=== PATIENT | male | born 1975 | race African-American/Black ===

== ENCOUNTER 2020-10-05 06:24 | Observation (INO) ==
[2020-10-05 07:14] LABS: Basophils % 0.4 % (0.0-0.8); Eosinophils # 0.3 10*3/uL (0.0-0.87); Eosinophils % 3.6 % (0.00-10.9); Hematocrit 39.7 VOL% (42.0-52.0); Hemoglobin 12.8 GM/DL (14.0-18.0); Immature Granulocytes % 0.5 %; Immature Granulocytes Absolute 0.04 #; Lymphocytes % 23.7 % (21.2-54.2); Mean Corpuscular HGB Conc 32.2 GM/DL (32-36); Mean Corpuscular Volume 78.1 FL (87-102); Mean Platelet Volume 10.2 FL (9.6-12.0); Monocytes % 7.9 % (1.7-12.7); Neutrophils % 63.9 % (38.7-73.9); Platelet Count 206 T/CUMM (130-400); Red Blood Count 5.08 MC/CUMM (3.8-5.5); Red Cell Distribution Width 15.1 % (9.3-17.3); White Blood Count 8.3 T/CUMM (4-12)
[2020-10-05 07:34] LABS: PT Patient Result 10.7 SECS (9.8-11.9)
[2020-10-05 07:40] LABS: Bilirubin,Urine Negative (Negative); Blood, Urine Small mg/dL (Negative); Glucose,Urine (UA) 50 mg/dL (Negative); Ketones,Urine Negative (Negative); Nitrite,Urine Negative (Negative); Protein,Urine Negative; RBC,Urine 1 /HPF (0-4); Urine Appearance CLEAR (Clear); Urine Color Yellow (Yellow); Urine Specific Gravity 1.041 (1.001-1.035); Urine Urobilinogen < 2.0 EU/DL (0.2-1.0); WBC,Urine 1 /HPF (0-6)
[2020-10-05 07:47] LABS: Alanine Aminotransferase 42 U/L (16-61); Albumin 3.8 G/DL (3.4-5.0); Alkaline Phosphatase 60 U/L (45-117); Aspartate Amino Transferase 30 U/L (0-37); Blood Urea Nitrogen 14 MG/DL (7-18); Calcium 8.5 MG/DL (8.5-10.1); Carbon Dioxide 26 MMOL/L (21-32); Estimated Glom Filtration Rate 116 ML/MIN; Glucose 83 MG/DL (74-106); Osmolality,Calculated 280.3 MOS/KG (273-304); Potassium 3.7 MMOL/L (3.5-5.1); Sodium 141 MMOL/L (136-145); Total Protein 7.6 G/DL (5.0-7.5)
[2020-10-05 07:48] LABS: Barbiturates Screen,Urine Negative (Negative); Benzodiazepines Screen,Urine Negative (Negative); Cannabinoid Screen,Urine Positive (Negative); Opiate Screen,Urine Negative (Negative); Phencyclidine Screen,Urine Negative (Negative)
[2020-10-05 08:10] LABS: Partial Thromboplastin Time < 20.0 SECS (23.9-33.8)
[2020-10-05 08:37] LABS: Eosinophils 2 % (0-10); Lymphocytes 22 % (20-55); Nucleated Red Blood Cells 2 (0-5); Platelet Estimate Normal; Segmented Neutrophils 70 % (50-85); Total Cells Counted 100
[2020-10-05] MEDS ORDERED: BISACODYL 5 MG TABLET PO PRN (09:25)
[2020-10-05] MEDS ORDERED: ONDANSETRON 4 MG/2 ML VIAL IV PRN (09:25)
[2020-10-05] MEDS ORDERED: ALBUTEROL/IPRATROPIUM 3 ML NEB RESP TX PRN (09:25)
[2020-10-05] MEDS ORDERED: ACETAMINOPHEN 325 MG TABLET PO PRN (09:25)
[2020-10-05] MEDS ORDERED: HYDROmorphone 2 MG/1 ML VIAL IV PRN (09:25)
[2020-10-05] MEDS: KETOROLAC 10 MG TABLET PO SCH ×3 (10:50→20:40)
[2020-10-05] MEDS: LACTATED RINGERS 1,000 ML IV SCH ×2 (11:11→18:12)
[2020-10-05] MEDS: ALBUTEROL/IPRATROPIUM 3 ML NEB RESP TX SCH ×2 (13:25→19:35)
[2020-10-06] MEDS: LACTATED RINGERS 1,000 ML IV SCH ×2 (00:50→16:54)
[2020-10-06] MEDS: ALBUTEROL/IPRATROPIUM 3 ML NEB RESP TX SCH ×4 (00:53→20:02)
[2020-10-06] MEDS: KETOROLAC 10 MG TABLET PO SCH ×4 (05:20→21:19)
[2020-10-06 05:34] LABS: Basophils % 0.2 % (0.0-0.8); Eosinophils # 0.2 10*3/uL (0.0-0.87); Eosinophils % 2.3 % (0.00-10.9); Hematocrit 37.5 VOL% (42.0-52.0); Hemoglobin 11.9 GM/DL (14.0-18.0); Immature Granulocytes % 0.5 %; Immature Granulocytes Absolute 0.05 #; Lymphocytes # 2.4 10*3/uL (1.4-4.0); Lymphocytes % 24.8 % (21.2-54.2); Mean Corpuscular HGB Conc 31.7 GM/DL (32-36); Mean Corpuscular Volume 77.5 FL (87-102); Mean Platelet Volume 10.1 FL (9.6-12.0); Monocytes % 8.1 % (1.7-12.7); Neutrophils % 64.1 % (38.7-73.9); Platelet Count 198 T/CUMM (130-400); Red Blood Count 4.84 MC/CUMM (3.8-5.5); White Blood Count 9.5 T/CUMM (4-12)
[2020-10-06] MEDS: ENOXAPARIN 40 MG/0.4 ML SYRINGE SUBCUT SCH ×2 (05:45→21:19)
[2020-10-06 05:51] LABS: Albumin 3.2 G/DL (3.4-5.0); Bilirubin,Total 0.4 MG/DL (0.2-1.0); Calcium 8.4 MG/DL (8.5-10.1); Osmolality,Calculated 274.5 MOS/KG (273-304); Potassium 3.7 MMOL/L (3.5-5.1); Total Protein 6.5 G/DL (5.0-7.5)
[2020-10-06] MEDS: PANTOPRAZOLE 40 MG TABLET PO SCH (09:01)
[2020-10-07] MEDS: LACTATED RINGERS 1,000 ML IV SCH ×4 (00:43→15:31)
[2020-10-07] MEDS: ALBUTEROL/IPRATROPIUM 3 ML NEB RESP TX SCH ×4 (00:44→19:19)
[2020-10-07] MEDS: KETOROLAC 10 MG TABLET PO SCH ×4 (04:40→21:15)
[2020-10-07] MEDS: PANTOPRAZOLE 40 MG TABLET PO SCH (09:42)
[2020-10-07] MEDS: ENOXAPARIN 40 MG/0.4 ML SYRINGE SUBCUT SCH (21:15)
[2020-10-08] MEDS: LACTATED RINGERS 1,000 ML IV SCH ×3 (00:49→07:54)
[2020-10-08] MEDS: ALBUTEROL/IPRATROPIUM 3 ML NEB RESP TX SCH ×2 (00:52→08:39)
[2020-10-08] MEDS: KETOROLAC 10 MG TABLET PO SCH ×2 (03:58→08:46)
[2020-10-08] MEDS: PANTOPRAZOLE 40 MG TABLET PO SCH (08:47)
[2020-10-08 11:10] VITALS: BP 138/76
== END 2020-10-08 12:00 | disposition home or self-care (01) ==
LOC: N.EDINP 06:24 → N.ED 06:24 → N.3E 10:14
PROVIDERS: ADMIT Surgery; ATTEND Surgery